=== PATIENT | female | born 1970 | race Caucasian/White ===

== ENCOUNTER 2020-07-12 17:02 | Observation (INO) | payer OTHER, SELFPAY ==
--- NOTE | ~2020-07-12 | CT_ITS ---
EXAMINATION: CT abdomen pelvis w con EXAM DATE: 07/12/2020 18:10 INDICATION: Lower abdominal pain . TECHNIQUE: Spiral CT of the abdomen and pelvis was performed following intravenous injection of 100 m L Omnipaque 350. Axial, coronal and sagittal images were reviewed. The dose-length product (DLP) fo r this examination was 1263.74 mGy-cm. The exposure was tailored according to patient size (auto mA exposure control), and iterative reconstruction (ASIR) was used as additional dose reduction techniqu e. There is no prior study for comparison. FINDINGS: The liver, spleen, adrenal glands and pancreas are unremarkable. There is large peripheral ly calcified gallstone within the gallbladder fundus. Portal and splenic veins are patent. Kidneys enhance symmetrically. There is no hydronephrosis. The uterus is not identified and has likely bee n surgically resected. The bladder is unremarkable. There is no retroperitoneal or pelvic lymphaden opathy. Small umbilical fat-containing hernia. The appendix is identified, appears fluid-filled and mildly dilated. There is extensive inflammation in the right lower quadrant, surrounding this appendix, also with edema of the cecal base. Most likel y acute appendicitis (best seen on coronal image 45). No abscess, free intraperitoneal gas or other evidence of perforation. There is some edema within several small bowel loops running adjacent to the appendix. Colonic fluid. The stomach and small bowel are unremarkable. The heart is normal in size. There are no pericardial or pleural effusions. The lung bases are unremarkable. There are no osteoblastic or osteolytic les ions identified. IMPRESSION: 1. Extensive right lower quadrant inflammation, most likely from acute appendicitis. 2. Cholelithiasis. Reviewed, dictated and finalized at location A. ATIONS PLANT ATTENDANT IMPRESSION: 1. Extensive right lower quadrant inflammation, most likely from acute appendic itis. 2. Cholelithiasis.
[2020-07-12 17:05] VITALS: BP 133/93; PULSE 100; RESP 15; TEMP 36.4; O2SAT 100
[2020-07-12 17:30] LABS: Basophils Absolute Auto 0.1 K/mm3 (0.0-0.1); Basophils Percent Auto 0.3 % (0.2-1.2); Eosinophils Absolute Auto 0.3 K/mm3 (0-0.3); Eosinophils Percent Auto 1.3 % (0-4.4); Hematocrit 41.3 % (37.0-47.0); Hemoglobin 14.4 g/dL (12.0-15.0); Immature Granulocyte Absolute 0.09 K/mm3 (0.00-0.031); Immature Granulocyte Percent A 0.5 % (0-0.5); Lymphocytes Absolute Auto 2.48 K/mm3 (0.9-3.2); Lymphocytes Percent Auto 12.8 % (18.3-44.2); Mean Corpuscular HGB Conc 34.9 g/dl (32-36); Mean Corpuscular Hemoglobin 30.1 pg (26-34); Mean Corpuscular Volume 86.4 fl (80-100); Mean Platelet Volume 9.6 fl (7.4-10.4); Monocytes Absolute Auto 1.1 K/mm3 (0.1-0.6); Monocytes Percent Auto 5.5 % (2.6-8.5); Neutrophils Absolute Auto 15.4 K/mm3 (1.3-6.7); Neutrophils Percent Auto 79.6 % (45.5-73.1); Platelet Count Result 358 k/mm3 (150-375); Red Blood Count 4.78 M/mm3 (4.2-5.4); Red Cell Distribution Width 13.3 % (11.5-14.5); White Blood Count 19.3 K/mm3 (4.5-10.0)
[2020-07-12 17:35] LABS: Add Urine Microscopic? YES; Appearance Urine Cloudy (Clear); Bacteria Urine Trace /hpf; Bilirubin Urine Negative (Negative); Color Urine Amber (Yellow); Glucose Urine UA Negative (Negative); Ketones Urine 2+ mg/dL (Negative); Leukocyte Esterase Ur Negative LEU/UL (Negative); Mucus Urine Few /lpf; Nitrate Urine Negative (Negative); Protein Urine 2+ mg/dL (Negative); Specific Grav Ur 1.017 (1.001-1.035); Squamous Epithelial Cell Urine Many /hpf (Few); Urobilinogen Urine Negative mg/dL (<2.0); WBC Urine 21-30 /hpf
--- NOTE | 2020-07-12 17:36 | ED.ABDPAIN ---
HPI - Abdominal Pain General Chief Complaint: Abdominal Pain Stated Complaint: ABD pain, since Sat at 1 am Time Seen by Provider: 07/12/20 17:14 Source: patient Mode of arrival: ambulatory Limitations: no limitations History of Present Illness HPI narrative: This patient is a 49 year old female who presents for evaluation of lower abdominal pain. She states she developed pain on Sunday. This pain is constant and it is located from her umbilicus down. She reports nausea but denies vomiting or diarrhea. She states this pain started after eating russian sunday night. She denies fever, chills or urinary complaints. Related Data Home Medications Medication Instructions Recorded Confirmed albuterol sulfate 90 mcg/actuation 2 puff INHALATION Q4H PRN g 06/30/20 07/12/20 aerosol inhaler phentermine 37.5 mg tablet 37.5 mg PO DAILY 06/30/20 07/12/20 topiramate 25 mg sprinkle capsule 25 mg PO HS 06/30/20 07/12/20 valacyclovir 1 gram tablet 2,000 mg PO Q12H PRN tablet 06/30/20 07/12/20 Allergies Allergy/AdvReac Type Severity Reaction Status Date / Time No Known Allergies Allergy Verified 07/12/20 17:06 Review of Systems Review of Systems: All systems reviewed & are unremarkable except as noted in HPI and below Constitutional: Constitutional: Denies chills and Denies fever(s) Gastrointestinal: Gastrointestinal: Reports abdominal pain, Reports constipation and Reports nausea PMFSH Past Medical History Medical History Environmental allergies Reactive airway disease Recurrent herpes labialis Surgical History Surgical History H/O: hysterectomy (~09/2017) Family History Family History (Updated 07/12/20 @ 20:33 by Bia Cohen RN) Father Cerebrovascular accident Prostate carcinoma Sibling History of blood clots Sibling Prostate carcinoma Other Diabetes mellitus Hypertension Social History Social History Smoking status: Never smoker Alcohol intake: never Substance use: never Substance use type: does not use Gender identity (if verbalized by the patient): Female Sexual Orientation (if Verbalized by the Patient): Straight or Heterosexual Spiritual care concerns: No Exam Const: General: no acute distress and alert Orientation/consciousness: patient oriented x3 Eyes: EOM: EOMs intact bilaterally Resp: Effort & Inspection: normal respiratory effort Auscultation: clear to auscultation bilaterally Cardio: Rate: regular rate Rhythm: regular rhythm Heart sounds: no murmurs GI: GI Palp: Yes Soft to palpation, Yes Tenderness to palpation present (GI) (RLQ), No Guarding due to palpation present (GI) and No Rigid due to palpation Auscultation: normal bowel sounds Skin: General skin exam: normal color Rashes: no rashes Neuro: General: patient oriented x3 and moves all extremities Course Consultations Consultation #1: I Discussed case with Dr. Obsorne. I Will given antibiotics, zosyn. He will call anesthesia to determine when she will go to surgery. Date: 07/12/20 Time: 18:46 Consultation #2: He accepts patient to his service. Patient will go to OR tomorrow morning. Date: 07/12/20 Time: 18:55 Vital Signs Vital signs: Vital Signs Temperature 97.5 F L 07/12/20 17:05 Pulse Rate 100 07/12/20 17:05 Respiratory Rate 15 07/12/20 17:05 Blood Pressure 133/93 H 07/12/20 17:05 Pulse Oximetry 100 07/12/20 17:05 Temperature 97.3 F L 07/12/20 20:36 Pulse Rate 69 07/12/20 20:36 Respiratory Rate 16 07/12/20 20:36 Blood Pressure 120/76 07/12/20 20:36 Pulse Oximetry 99 07/12/20 20:36 MDM - Abdominal Pain Lab Data Attestation: I reviewed the patient's lab results. Result diagrams: 07/12/20 17:21 07/12/20 17:21 Labs: Lab Results
[2020-07-12 17:38] LABS: Blood Urine Negative (Negative)
[2020-07-12 17:41] LABS: Alanine Aminotransferase 19 U/L (4-35); Albumin Level 4.3 g/dL (3.5-5.1); Alkaline Phosphatase 130 U/L (38-126); Anion Gap 10 mmol/L (8-16); Aspartate Amino Transferase 22 U/L (14-36); Bilirubin,Total 0.9 mg/dL (0.2-1.3); Blood Urea Nitrogen 6 mg/dL (7-17); Calcium 9.5 mg/dL (8.4-10.2); Carbon Dioxide 27 mmol/L (22-30); Chloride 98 mmol/L (98-107); Estimated CRCL calculation 98 ml/min; Estimated Glomerular Filt Rate > 60; Glucose 111 mg/dL (65-105); Lipase 31 U/L (23-300); Potassium 3.1 mmol/L (3.4-5.0); Sodium 135 mmol/L (137-145)
[2020-07-12] MEDS: LACTATED RINGERS 1,000 ML 999 ML IV CONT (18:21)
[2020-07-12] MEDS: ONDANSETRON INJ 4 MG/2 ML VIAL IV PUSH ×2 (18:21→21:31)
[2020-07-12 18:55] VITALS: BP 146/78; PULSE 88; RESP 16; O2SAT 98
--- NOTE | 2020-07-12 20:30 | ADMGEN ---
This patient, Heidi Newberry, was admitted to 2 Medical Room 240-01. Patient/family oriented to hospital policies and general routines including ID bracelet, bed and alarms, visiting hours, pain management, procedures, bathroom and other care routines, personal items, smoking policy, room service/diet, and visiting hours. Information on how to activate the Rapid Response Team has been discussed. Patient/Family are encouraged to report perceived risks to care and to ask questions if they do not understand what they are told or what they should do.
[2020-07-12 20:36] VITALS: BP 120/76; PULSE 69; RESP 16; TEMP 36.3; O2SAT 99; BMI 36.8
[2020-07-12] MEDS: ZOLPIDEM TARTRATE (*CRX) 5 MG TABLET PO (21:21)
[2020-07-12] MEDS: LACTATED RINGERS 1,000 ML 125 ML IV CONT (21:21)
[2020-07-12] MEDS: MORPHINE SULFATE (*CRX) 4 MG/ML INJ IV PUSH (21:29)
[2020-07-13] VITALS (17 sets, daily range): BP systolic 99–123; BP diastolic 50–87; PULSE 64–107; RESP 14–20; TEMP 36.2–37; O2SAT 90–100
[2020-07-13] MEDS: LACTATED RINGERS 1,000 ML 125 ML IV CONT (05:00)
[2020-07-13] MEDS: ONDANSETRON INJ 4 MG/2 ML VIAL IV PUSH (05:03)
[2020-07-13] MEDS: MORPHINE SULFATE (*CRX) 4 MG/ML INJ IV PUSH (05:03)
--- NOTE | 2020-07-13 05:09 | WPDANESEPP ---
Anes - Eval Pre Procedure Procedure: Lap appy Date/Time: 07/13/20 05:09 Surgeon: Dylon Preop Diagnosis: Acute appendicitis Pre Op Diagnosis: acute appendicitis Patient Data Age: 49 Gender: F Height: 5 ft 5 in Weight: 100.6 kg Last Vital Signs Temp 97.3 F L 07/12/20 20:36 Pulse 69 07/12/20 20:36 Resp 16 07/12/20 20:36 BP 120/76 07/12/20 20:36 Pulse Ox 99 07/12/20 20:36 Allergies Allergy/AdvReac Type Severity Reaction Status Date / Time No Known Allergies Allergy Verified 07/12/20 17:06 Home Medications Medication Instructions Recorded Confirmed Type albuterol sulfate 90 mcg/actuation 2 puff INHALATION Q4H PRN g 06/30/20 07/12/20 History aerosol inhaler phentermine 37.5 mg tablet 37.5 mg PO DAILY 06/30/20 07/12/20 History topiramate 25 mg sprinkle capsule 25 mg PO HS 06/30/20 07/12/20 History valacyclovir 1 gram tablet 2,000 mg PO Q12H PRN tablet 06/30/20 07/12/20 History Laboratory Tests 07/12/20 07/12/20 07/12/20 17:21 17:21 17:21 WBC 19.3 K/mm3 H K/mm3 (4.5-10.0) RBC 4.78 M/mm3 M/mm3 (4.2-5.4) Hgb 14.4 g/dL g/dL (12.0-15.0) Hct 41.3 % % (37.0-47.0) MCV 86.4 fl fl (80-100) MCH 30.1 pg pg (26-34) MCHC 34.9 g/dl g/dl (32-36) RDW 13.3 % % (11.5-14.5) Plt Count 358 k/mm3 k/mm3 (150-375) MPV 9.6 fl fl (7.4-10.4) Immature Gran % (Auto) 0.5 % % (0-0.5) Neut % (Auto) 79.6 % H % (45.5-73.1) Lymph % (Auto) 12.8 % L % (18.3-44.2) Riley % (Auto) 5.5 % % (2.6-8.5) Eos % (Auto) 1.3 % % (0-4.4) Baso % (Auto) 0.3 % % (0.2-1.2) Lymph # (Auto) 2.48 K/mm3 K/mm3 (0.9-3.2) Riley # (Auto) 1.1 K/mm3 H K/mm3 (0.1-0.6) Eos # (Auto) 0.3 K/mm3 K/mm3 (0-0.3) Baso # (Auto) 0.1 K/mm3 K/mm3 (0.0-0.1) Abs Immat Gran (auto) 0.09 K/mm3 H K/mm3 (0.00-0.031) Absolute Neuts (auto) 15.4 K/mm3 H K/mm3 (1.3-6.7) Absolute Nucleated RBC 0.0 K/mm3 K/mm3 (0.0-0.012) Nucleated RBC % 0.0 % % (0.0-0.2) Sodium 135 mmol/L L mmol/L (137-145) Potassium 3.1 mmol/L L mmol/L (3.4-5.0) Chloride 98 mmol/L mmol/L (98-107) Carbon Dioxide 27 mmol/L mmol/L (22-30) Anion Gap 10 mmol/L mmol/L (8-16) BUN 6 mg/dL L mg/dL (7-17) Creatinine 0.70 mg/dL mg/dL (0.7-1.0) Estim Creat Clear Calc 98 ml/min ml/min Estimated GFR > 60 (59 - ) Glucose 111 mg/dL H mg/dL (65-105) Calcium 9.5 mg/dL mg/dL (8.4-10.2) Total Bilirubin 0.9 mg/dL mg/dL (0.2-1.3) AST 22 U/L U/L (14-36) ALT 19 U/L U/L (4-35) Alkaline Phosphatase 130 U/L H U/L (38-126) Total Protein 8.0 g/dL g/dL (6.3-8.2) Albumin 4.3 g/dL g/dL (3.5-5.1) Lipase 31 U/L U/L (23-300) Urine Color Mayela (Yellow) Urine Appearance Cloudy H (Clear) Urine pH 6.0 (5.0-9.0) Ur Specific [place] 1.017 (1.001-1.035) Urine Protein 2+ mg/dL H mg/dL (Negative) Urine Glucose (UA) Negative mg/dL mg/dL (Negative) Urine Ketones 2+ mg/dL H mg/dL (Negative) Ur Blood (Man) Negative (Negative) Urine Nitrate Negative (Negative) Urine Bilirubin Negative (Negative) Urine Urobilinogen Negative mg/dL mg/dL (<2.0) Leukocyte Esterase Rfl Negative [place]/UL [place]/UL (Negative) Urine RBC 3-5 /hpf H /hpf (0-2) Urine WBC 21-30 /hpf H /hpf Ur Squamous Epith Cells Many /hpf H /hpf (Few) Urine Bacteria Trace /hpf /hpf Hyaline Casts 1-2 /lpf /lpf (None) Urine Mucus Few /lpf H /lpf Patient hx anesthesia problems: none Family hx anesth
--- NOTE | 2020-07-13 06:28 | PC.NURSE ---
0625 patient to OR per stretcher.
--- NOTE | 2020-07-13 06:35 | WPDANESEPPF ---
Anes - Initial Pre Proc Eval Procedure: Operation Date: 07/13/20 07:00 Proposed Procedures p Laparoscopic Appendectomy - Alli Osborne DO Date/Time: 07/13/20 06:35 Surgeon: Alli Osborne DO Pre Op Diagnosis: acute appendicitis Patient Data Age: 49 Gender: F Height: 1.65 m Weight: 100.6 kg Last Vital Signs Temp 36.3 C L 07/13/20 06:03 Pulse 76 07/13/20 06:03 Resp 16 07/13/20 06:03 BP 113/67 07/13/20 06:03 Pulse Ox 97 07/13/20 06:03 Allergies Allergy/AdvReac Type Severity Reaction Status Date / Time No Known Allergies Allergy Verified 07/12/20 17:06 Home Medications Medication Instructions Recorded Confirmed Type albuterol sulfate 90 mcg/actuation 2 puff INHALATION Q4H PRN g 06/30/20 07/12/20 History aerosol inhaler phentermine 37.5 mg tablet 37.5 mg PO DAILY 06/30/20 07/12/20 History topiramate 25 mg sprinkle capsule 25 mg PO HS 06/30/20 07/12/20 History valacyclovir 1 gram tablet 2,000 mg PO Q12H PRN tablet 06/30/20 07/12/20 History Laboratory Tests 07/12/20 07/12/20 07/12/20 17:21 17:21 17:21 WBC 19.3 K/mm3 H K/mm3 (4.5-10.0) RBC 4.78 M/mm3 M/mm3 (4.2-5.4) Hgb 14.4 g/dL g/dL (12.0-15.0) Hct 41.3 % % (37.0-47.0) MCV 86.4 fl fl (80-100) MCH 30.1 pg pg (26-34) MCHC 34.9 g/dl g/dl (32-36) RDW 13.3 % % (11.5-14.5) Plt Count 358 k/mm3 k/mm3 (150-375) MPV 9.6 fl fl (7.4-10.4) Immature Gran % (Auto) 0.5 % % (0-0.5) Neut % (Auto) 79.6 % H % (45.5-73.1) Lymph % (Auto) 12.8 % L % (18.3-44.2) Arthur % (Auto) 5.5 % % (2.6-8.5) Eos % (Auto) 1.3 % % (0-4.4) Baso % (Auto) 0.3 % % (0.2-1.2) Lymph # (Auto) 2.48 K/mm3 K/mm3 (0.9-3.2) Arthur # (Auto) 1.1 K/mm3 H K/mm3 (0.1-0.6) Eos # (Auto) 0.3 K/mm3 K/mm3 (0-0.3) Baso # (Auto) 0.1 K/mm3 K/mm3 (0.0-0.1) Abs Immat Gran (auto) 0.09 K/mm3 H K/mm3 (0.00-0.031) Absolute Neuts (auto) 15.4 K/mm3 H K/mm3 (1.3-6.7) Absolute Nucleated RBC 0.0 K/mm3 K/mm3 (0.0-0.012) Nucleated RBC % 0.0 % % (0.0-0.2) Sodium 135 mmol/L L mmol/L (137-145) Potassium 3.1 mmol/L L mmol/L (3.4-5.0) Chloride 98 mmol/L mmol/L (98-107) Carbon Dioxide 27 mmol/L mmol/L (22-30) Anion Gap 10 mmol/L mmol/L (8-16) BUN 6 mg/dL L mg/dL (7-17) Creatinine 0.70 mg/dL mg/dL (0.7-1.0) Estim Creat Clear Calc 98 ml/min ml/min Estimated GFR > 60 (59 - ) Glucose 111 mg/dL H mg/dL (65-105) Calcium 9.5 mg/dL mg/dL (8.4-10.2) Total Bilirubin 0.9 mg/dL mg/dL (0.2-1.3) AST 22 U/L U/L (14-36) ALT 19 U/L U/L (4-35) Alkaline Phosphatase 130 U/L H U/L (38-126) Total Protein 8.0 g/dL g/dL (6.3-8.2) Albumin 4.3 g/dL g/dL (3.5-5.1) Lipase 31 U/L U/L (23-300) Urine Color Mayela (Yellow) Urine Appearance Cloudy H (Clear) Urine pH 6.0 (5.0-9.0) Ur Specific [place] 1.017 (1.001-1.035) Urine Protein 2+ mg/dL H mg/dL (Negative) Urine Glucose (UA) Negative mg/dL mg/dL (Negative) Urine Ketones 2+ mg/dL H mg/dL (Negative) Ur Blood (Man) Negative (Negative) Urine Nitrate Negative (Negative) Urine Bilirubin Negative (Negative) Urine Urobilinogen Negative mg/dL mg/dL (<2.0) Leukocyte Esterase Rfl Negative [place]/UL [place]/UL (Negative) Urine RBC 3-5 /hpf H /hpf (0-2) Urine WBC 21-30 /hpf H /hpf Ur Squamous Epith Cells Many /hpf H /hpf (Few) Urine Bacteria Trace /hpf /hpf Hyaline Casts 1-2 /lpf /lpf (None) Urine Mucus
[2020-07-13] MEDS: LACTATED RINGERS 1,000 ML 30 ML IV CONT ×2 (06:53→08:36)
[2020-07-13] MEDS: FAMOTIDINE 20 MG/2 ML VIAL IV PUSH (06:54)
[2020-07-13] MEDS: SCOPOLAMINE 1.5 MG PATCH TRANSDERM (06:55)
[2020-07-13] MEDS: fentaNYL CITRATE INJ (*CRX) 100 MCG/2 ML VIAL 25 MCG IV PUSH ×5 (07:00→09:04)
--- NOTE | 2020-07-13 07:13 | PM.IMHP ---
H&P: HPI History of Present Illness Date/Time: 07/13/20 07:13 Chief Complaint: Right lower quadrant pain Narrative: Heidi Newberry is a 49 year old female who presents with right lower quadrant abdominal pain for the past 3 days. She states that she woke up with pain around 1:00 a.m. 3 days ago and pain was severe that day. Pain was a little bit better 2 days ago, but then persisted yesterday and therefore she presented to the emergency department. She has never had pain like this in the past. She has had some nausea and some feelings of near-syncope. She denies any fevers or chills. She denies any change in bowel habits. She has been taking phentermine to help with weight loss and initially thought maybe some of the GI issues were related to this, but then her symptoms persisted and she thought it was likely something else. She denies any hematochezia. Review of Systems Review of Systems: All systems reviewed & are unremarkable except as noted in HPI and below PMFSH Past Medical History Medical History (Updated 07/13/20 @ 07:17 by Alli Osborne DO) Acute appendicitis Asthma Environmental allergies Obesity Reactive airway disease Recurrent herpes labialis Surgical History Surgical History (Updated 07/13/20 @ 07:15 by Alli Osborne DO) H/O: hysterectomy (~09/2017) History of Family History Family History Father Cerebrovascular accident Prostate carcinoma Sibling History of blood clots Sibling Prostate carcinoma Other Diabetes mellitus Hypertension Social History Social History Smoking status: Never smoker Alcohol intake: never Substance use: never Substance use type: does not use Gender identity (if verbalized by the patient): Female Sexual Orientation (if Verbalized by the Patient): Straight or Heterosexual Spiritual care concerns: No Meds Home Medications and Allergies Home Medications Medication Instructions Recorded Confirmed Type albuterol sulfate 90 mcg/actuation 2 puff INHALATION Q4H PRN g 06/30/20 07/12/20 History aerosol inhaler phentermine 37.5 mg tablet 37.5 mg PO DAILY 06/30/20 07/12/20 History topiramate 25 mg sprinkle capsule 25 mg PO HS 06/30/20 07/12/20 History valacyclovir 1 gram tablet 2,000 mg PO Q12H PRN tablet 06/30/20 07/12/20 History Allergies Allergy/AdvReac Type Severity Reaction Status Date / Time No Known Allergies Allergy Verified 07/12/20 17:06 Vital Signs Vital Signs - 24 hr 07/12/20 17:05 07/12/20 18:55 07/12/20 20:36 Temperature 36.4 C L 36.3 C L Pulse Rate 100 88 69 Respiratory Rate 15 16 16 Blood Pressure 133/93 H 146/78 H 120/76 Pulse Oximetry 100 98 99 07/13/20 06:03 07/13/20 06:38 Temperature 36.3 C L 36.4 C L Pulse Rate 76 80 Respiratory Rate 16 18 Blood Pressure 113/67 107/57 L Pulse Oximetry 97 99 Exam Const: General: alert; No acute distress Orientation/consciousness: patient oriented x3 Limitations: no limitations HENMT: Head: normocephalic and atraumatic Ears: hearing grossly normal bilaterally General nose exam: Normal external nose present and Normal nares present Mouth: Yes Normal oral and palatal mucosa present and Yes moist mucous membranes Eyes: General: appearance normal, both eyes and all related structures Conjunctivae: conjunctivae normal Sclera: sclerae normal Pupils: Equal, round and reactive pupils present EOM: EOMs intact bilaterally Neck: Neck: normal visual inspection, full ROM, no lymphadenopathy, supple and no JVD Lymphatic: no lymphadenopathy noted Chest: Chest palpation & inspection: normal inspection of the chest Resp: Effort & Inspection: normal respiratory effort and able to speak in complete sentences Auscultation: clear to auscultation bilaterally Percussion: percussion normal Cardio: Jugular venous distension: no JVD Rate:
--- NOTE | 2020-07-13 07:18 | WPDHPUPDATE1 ---
History and Physical Update Update Date/Time: 07/13/20 07:18 History and Physical has been reviewed, including an updated exam of the patient. There are NO changes in the patient's condition. Risks, benefits, and alternatives have been discussed and questions answered. Patient agrees to proceed with procedure.
[2020-07-13] MEDS: BUPIVACAINE HCL 0.5% PF 30 ML VIAL INFILTRATE (07:46)
--- NOTE | 2020-07-13 08:27 | PM.PROC ---
Procedure Note - Detailed Date of procedure: 07/13/20 Pre-op diagnosis: acute appendicitis Post-op diagnosis: same Procedure performed: Laparoscopic Appendectomy Description of procedure: Procedure as well as risks, benefits, and alternatives were explained to the patient. The patient agreed to proceed. Written consent was obtained and placed in chart prior to procedure. The patient was brought back to surgical suite. She was placed supine on operating table. Time-out was done to confirm the patient and procedure. The patient was then intubated by the Anesthesia Department. Her abdomen was prepped and draped in sterile fashion using chlorhexidine prep. A 5 mm incision was made just to the left of the patient's umbilicus and a 5 mm Optiview trocar was advanced through the abdominal layers under direct visualization. Once inside the peritoneal cavity, carbon dioxide insufflation was used to create a pneumoperitoneum. The camera was inserted and the abdomen was inspected. No immediate abnormalities were identified. The patient was then placed in slight Trendelenburg position and rotated to the left. A 5 mm incision was made in the suprapubic region in midline and a 5 mm trocar was inserted under direct visualization. A 12 mm incision was made in the left lower quadrant and a 12 mm trocar was inserted under direct visualization. The right lower quadrant was carefully inspected. The cecum was identified and then this was traced back to the appendix. The appendix was identified and grasped at the mesoappendix and lifted anteriorly. Careful blunt dissection was carried out at the base of the appendix through the mesoappendix using a [place] grasper. An Endo-NINOSKA 45 mm blue load stapler was then advanced across the base of the appendix and clamped and fired. A white reload was then clamped across the mesoappendix and fired. This freed up our appendix completely. It was then placed in an EndoCatch bag and removed through the left lower quadrant port. The staple lines were then inspected. Hemostasis appeared adequate and the staple lines appeared secure. The area was then irrigated with sterile saline. The pelvis was then carefully inspected and irrigated with sterile saline as well and the remainder of the abdomen was carefully inspected. The patient was then flattened out in bed. One final inspection was made around the abdominal cavity and no other abnormalities were seen. The left lower quadrant port was removed and a Kishan-Cirilo cone was used to approximate the fascia with a 0 Vicryl simple interrupted suture. The remaining ports were then removed under direct visualization. The camera was removed and the pneumoperitoneum was released. 0.5% bupivacaine with epinephrine was infiltrated locally around each of the incisions. The skin of the incisions was then approximated using 4-0 Monocryl subcuticular suture and Exofin glue was applied on top. The patient was then awakened from anesthesia, extubated, and transferred to Recovery. Anesthesia: GETA and local (0.5% bupivicaine with epi) Surgeon: Alli Osborne DO Estimated blood loss (mL): 20 Pathology: yes (Appendix) Complications: No immediate complications Condition: stable Disposition: floor Findings: This is a 49-year-old woman who presented to the emergency department last night with right lower quadrant pain for past 2 days. She had had progressively worsening pain and nausea. She denied any fevers or chills. CT in the emergency department showed significant right lower quadrant inflammatory changes suggestive of appendicitis. She was admitted and started on broad-spectrum IV antibiotics. Decision was made to proceed with laparoscopic appendectomy, possible open. Laparoscopic appendectomy was performed. There was an inflammatory phlegmonous mass in the right lower quadrant with sigmoid adhesions as well as small bowel adhesions and omental adhesions. Once many of these adhesions wer
--- NOTE | 2020-07-13 10:00 | PC.NURSE ---
Returned from OR per stretcher. Report received from DANNY Madison.
[2020-07-13] MEDS: LACTATED RINGERS 1,000 ML 100 ML IV CONT (10:03)
[2020-07-13] MEDS: ENOXAPARIN 30 MG/0.3 ML SYRINGE SUB-Q ×2 (10:55→20:02)
[2020-07-13] MEDS: HYDROcodone/acetaminophen (*CRX) 7.5-325 MG TABLET 1 TAB PO ×2 (12:59→19:57)
[2020-07-13] MEDS: ZOLPIDEM TARTRATE (*CRX) 5 MG TABLET PO (22:27)
[2020-07-14] MEDS: HYDROcodone/acetaminophen (*CRX) 5-325 MG TABLET 1 TAB PO (01:12)
[2020-07-14 04:00] VITALS: BP 100/64; PULSE 74; RESP 20; TEMP 36.6; O2SAT 98
[2020-07-14] MEDS: HYDROcodone/acetaminophen (*CRX) 7.5-325 MG TABLET 1 TAB PO ×3 (05:49→20:10)
[2020-07-14 06:17] LABS: Hematocrit 30.6 % (37.0-47.0); Hemoglobin 10.7 g/dL (12.0-15.0); Mean Corpuscular Hemoglobin 29.9 pg (26-34); Mean Corpuscular Volume 85.5 fl (80-100); Mean Platelet Volume 10.1 fl (7.4-10.4); Platelet Count Result 340 k/mm3 (150-375); Red Blood Count 3.58 M/mm3 (4.2-5.4); Red Cell Distribution Width 13.2 % (11.5-14.5); White Blood Count 13.9 K/mm3 (4.5-10.0)
[2020-07-14 06:43] LABS: Anion Gap 5 mmol/L (8-16); Blood Urea Nitrogen 8 mg/dL (7-17); Calcium 8.8 mg/dL (8.4-10.2); Carbon Dioxide 31 mmol/L (22-30); Chloride 101 mmol/L (98-107); Estimated CRCL calculation 98 ml/min; Estimated Glomerular Filt Rate > 60; Glucose 111 mg/dL (65-105); Potassium 3.2 mmol/L (3.4-5.0); Sodium 137 mmol/L (137-145)
[2020-07-14 08:00] VITALS: BP 114/77; PULSE 80; RESP 16; TEMP 36.2; O2SAT 99
[2020-07-14] MEDS: ENOXAPARIN 30 MG/0.3 ML SYRINGE SUB-Q ×2 (08:08→20:13)
--- NOTE | 2020-07-14 08:57 | WPDANESPN ---
Anes - Prog Note Post-Op Date/Time: 07/14/20 08:57 Cardiovascular status: normal Respiratory status: normal Airway patency: baseline Mental status: baseline Post-Op hydration status: normal Vital Signs: Last Vital Signs Temp 36.6 C 07/14/20 04:00 Pulse 74 07/14/20 04:00 Resp 20 07/14/20 04:00 BP 100/64 07/14/20 04:00 Pulse Ox 98 07/14/20 04:00 Pain Score (VAS): 07/18 I/O: Intake & Output 07/13/20 07/14/20 07/14/20 23:59 07:59 15:59 Intake Total 1680 490 Output Total 995 1850 Balance 685 -1360 Laboratory Tests 07/14/20 05:15 07/14/20 05:15 07/14/20 07/14/20 05:15 05:15 WBC 13.9 H RBC 3.58 L Hgb 10.7 L D Hct 30.6 L MCV 85.5 MCH 29.9 MCHC 35.0 RDW 13.2 Plt Count 340 MPV 10.1 Sodium 137 Potassium 3.2 L Chloride 101 Carbon Dioxide 31 H Anion Gap 5 L BUN 8 Creatinine 0.70 Estim Creat Clear Calc 98 Estimated GFR > 60 Glucose 111 H Calcium 8.8 Microbiology 07/12/20 17:21 Urine Clean Catch Urine Culture - Final Patient Feedback: Patient satisfied with anesthetic care.
[2020-07-14] MEDS: ONDANSETRON INJ 4 MG/2 ML VIAL IV PUSH ×2 (11:19→20:11)
--- NOTE | 2020-07-14 12:33 | PM.PNGS ---
Progress Note: A&P Assessment and Plan (1) Acute appendicitis: Qualifiers: Acute appendicitis type: with localized peritonitis Appendicitis abscess presence: unspecified whether abscess present Appendicitis gangrene presence: unspecified whether gangrene present Appendicitis perforation presence: unspecified whether perforation present Qualified Code(s): K35.30 - Acute appendicitis with localized peritonitis, without perforation or gangrene Code(s): K35.80 - Unspecified acute appendicitis Status: Acute Assessment and Plan: POD1 and doing well. Pain is well-controlled and she is tolerating activity. WBC trending down, afebrile. She is complaining of bloating and some nausea today. We will plan to keep her overnight and potentially discharge tomorrow if she continues to improve. Continue to monitor EMMANUEL drain output. Continue IV antibiotics. Encouraged increased activity/OOB and IS use. Pathology pending. (2) BMI 36.0-36.9,adult: Code(s): Z68.36 - Body mass index [BMI] 36.0-36.9, adult Status: Acute Additional Plan Discussed the patient's case with Dr. Osborne. Subjective Subjective Date/Time Seen: 07/14/20 12:33 Post Op day: 1 (Lap appy) Patient reports: voiding w/o difficulty, flatus, no bowel movement and nausea Interval history: Patient feeling well today. Reports some soreness and abdominal pain primarily only when getting up and moving around/walking. She reports some nausea this morning and is still feeling bloated. Reports flatus. Denies any vomiting. No other complaints at this time. Review of Systems Review of Systems: All systems reviewed & are unremarkable except as noted in HPI and below Constitutional: Constitutional: Reports as per HPI, Reports no additional constitutional complaints, Denies chills and Denies fever(s) Cardiovascular: Cardiovascular: Reports no additional cardiovascular complaints, Denies chest pain, Denies leg edema and Denies dyspnea Respiratory: Respiratory: Reports no additional respiratory complaints, Denies cough and Denies dyspnea Gastrointestinal: Gastrointestinal: Reports as per HPI and Reports no additional gastrointestinal complaints Neurologic: Reports system reviewed and no additional complaints, except as documented, Denies Abnormal speech present, Denies confusion and Denies focal weakness Psychiatric: Psychiatric: Denies confusion Exam Const: General: comfortable, no acute distress, alert and awake Orientation/consciousness: patient oriented x3 Resp: Effort & Inspection: normal respiratory effort Auscultation: clear to auscultation bilaterally Cardio: Rate: regular rate Rhythm: regular rhythm GI: Inspection: non-distended, incision (Abdominal incisions clean and dry, glue intact. ) and obesity GI Palp: Yes Soft to palpation, Yes Tenderness to palpation present (GI) (incisional and RLQ), No Guarding due to palpation present (GI), No Rebound tenderness present and Yes Other GI palpation findings present (EMMANUEL with cloudy serosanguines drainage) Auscultation: Hypoactive bowel sounds present Skin: General skin exam: normal color Rashes: no rashes Neuro: General: patient oriented x3, moves all extremities and no focal motor deficits Cranial nerves: Yes CN's II-XII intact bilaterally Speech: normal speech and No Abnormal speech present Extrem: General: normal to inspection, no clubbing, cyanosis or edema and no calf tenderness Psych: Mental Status: mental status grossly normal Attitude: cooperative Thought process: Normal thought process present Thought content: Yes Normal thought content present Insight: Good insight present (Psych) Judgement: Good judgement present (Psych) Objective Data Vital Signs Vital Signs: Vital Signs - 24 hr 07/13/20 14:04 07/13/20 15:15 07/13/20 20:00 Temperature 98.4 F 98.1 F Pulse Rate 74 64 Respiratory Rate 18 20 Blood Pressure 111/59 L 99/68 L Pulse Oximetry 92 95 97 07/13/20 22:19
[2020-07-14 14:00] VITALS: BP 125/79; PULSE 68; RESP 14; TEMP 36.5; O2SAT 99
[2020-07-14 18:00] VITALS: BP 129/84; PULSE 70; RESP 16; TEMP 36.1; O2SAT 99
[2020-07-14 20:27] VITALS: BP 121/63; PULSE 68; RESP 20; TEMP 36.1; O2SAT 99
[2020-07-15] MEDS: ZOLPIDEM TARTRATE (*CRX) 5 MG TABLET PO (01:32)
[2020-07-15 04:37] VITALS: BP 109/65; PULSE 69; RESP 20; TEMP 36.3; O2SAT 99
[2020-07-15] MEDS: HYDROcodone/acetaminophen (*CRX) 5-325 MG TABLET 1 TAB PO (06:17)
[2020-07-15] MEDS: ENOXAPARIN 30 MG/0.3 ML SYRINGE SUB-Q (08:07)
[2020-07-15] MEDS: ONDANSETRON INJ 4 MG/2 ML VIAL IV PUSH (08:10)
[2020-07-15 09:59] LABS: Hematocrit 37.1 % (37.0-47.0); Hemoglobin 12.7 g/dL (12.0-15.0); Mean Corpuscular HGB Conc 34.2 g/dl (32-36); Mean Corpuscular Hemoglobin 29.7 pg (26-34); Mean Corpuscular Volume 86.7 fl (80-100); Mean Platelet Volume 9.4 fl (7.4-10.4); Platelet Count Result 356 k/mm3 (150-375); Red Blood Count 4.28 M/mm3 (4.2-5.4); Red Cell Distribution Width 13.2 % (11.5-14.5); White Blood Count 10.1 K/mm3 (4.5-10.0)
[2020-07-15] MEDS: polyethylene glycoL 3350 17 GM POWD.PACK PO (10:00)
[2020-07-15] MEDS: PANTOPRAZOLE 40 MG TABLET PO (10:00)
[2020-07-15 10:08] LABS: Anion Gap 5 mmol/L (8-16); Blood Urea Nitrogen 5 mg/dL (7-17); Calcium 8.5 mg/dL (8.4-10.2); Carbon Dioxide 33 mmol/L (22-30); Chloride 98 mmol/L (98-107); Estimated CRCL calculation 98 ml/min; Estimated Glomerular Filt Rate > 60; Glucose 105 mg/dL (65-105); Potassium 3.6 mmol/L (3.4-5.0); Sodium 136 mmol/L (137-145)
[2020-07-15 14:00] VITALS: BP 116/77; PULSE 68; RESP 18; TEMP 36; O2SAT 96
--- NOTE | 2020-07-15 14:47 | PM.DS ---
DS: Admitting Diagnosis Admitting Diagnosis Admitting Diagnosis: Acute appendicitis Obesity BMI 36 DS: Discharge Diagnosis Discharge Diagnosis (1) Acute appendicitis: Qualifiers: Acute appendicitis type: with localized peritonitis Appendicitis abscess presence: unspecified whether abscess present Appendicitis gangrene presence: unspecified whether gangrene present Appendicitis perforation presence: unspecified whether perforation present Qualified Code(s): K35.30 - Acute appendicitis with localized peritonitis, without perforation or gangrene Code(s): K35.80 - Unspecified acute appendicitis Status: Acute Assessment and Plan: 07/13/[address] Osborne Pathology back today showing ACUTE APPENDICITIS WITH PERFORATION AND ACUTE SEROSITIS, FIBROUS OBLITERATION OF LUMEN OF DISTAL TIP. (2) BMI 36.0-36.9,adult: Code(s): Z68.36 - Body mass index [BMI] 36.0-36.9, adult Status: Acute DS: Summary Hospital Course Reason for hospitalization: Heidi Newberry is a 49 year old female who presented to the ER with right lower quadrant abdominal pain for 3 days. ED workup revealed leukocytosis with CT scan that showed extensive right lower quadrant inflammation, likely from acute appendicitis. She was then admitted to the hospital in this setting and evaluated by Dr. Osborne for surgical evaluation. Hospital Course: The patient was started on empiric broad-spectrum IV antibiotics on admission and decision was made to take her urgently for an appendectomy. She underwent laparoscopic appendectomy by Dr. Osborne on 07/13/19. Intraoperative findings included an inflammatory phlegmonous mass in the right lower quadrant with sigmoid adhesions as well as small bowel adhesions and omental adhesions. There was significant phlegmonous changes around the appendix, but no definitive abscess. There was strong suspicion of perforation, therefore a EMMANUEL drain was placed in surgery and she was continued on IV antibiotics and kept overnight. POD#1 the patient was feeling nauseated and bloated, and her EMMANUEL drain had some cloudy serosanguineous drainage. Therefore, she remained on IV antibiotics and kept another day. Labs were monitored and her WBC continued to trend towards normal and is now 10,100 today. She was advanced to a regular diet. She did have nausea and one episode of vomiting yesterday afternoon that was treated with antiemetics. Today, her nausea has improved and she was able to tolerate primarily clear liquids during breakfast and lunch. She denies any nausea or bloating at this time and reports lots of flatus. No BM yet and was given one dose of Miralax this morning. EMMANUEL drainage is a clear serous drainage today. She has been afebrile since surgery and hemodynamically stable. Pain is well-controlled. She is voiding without difficulty. If the patient is able to tolerate a regular diet this afternoon, then she will be discharged home. If not, we will keep her another night. Discharge instructions were discussed in detail with the patient and answered all questions. Given the concern of perforation, which has now been confirmed on pathology, we will send her home on a course of oral antibiotics. We will have the nurse remove the EMMANUEL drain prior to discharge as well. Status at Discharge Functional status at discharge: independent ambulation Overall status at discharge: patient is progressing back to baseline Time Spent with Patient Time attestation: Total time spent providing and/or coordinating discharge services: Time spent: Greater than 30 minutes DS: Data Data Completed and Pending Completed studies during hospitalization: Pending at discharge 07/13/20 07:43 Surgical [PTH] Routine Labs on day of discharge: Labs from last 24 hours 07/15/20 07/15/20 09:23 09:23 WBC 10.1 H RBC 4.28 Hgb 12.7 Hct 37.1 MCV 86.7 MCH 29.7 MCHC 34.2 RDW 13.2 Plt Count 356 MPV 9.4 Sodium 136 L P
== END 2020-07-15 18:00 | disposition home or self-care (01) ==
LOC: ANHED 19:01 → ANH2MED 20:04
PROVIDERS: Emergency Medicine; Nurse Practitioner Family; Admitting Provider Surgery; Emergency Provider General Practice; PCP Family Medicine; Visit Provider Surgery
PROC: 0DTJ4ZZ Resection of Appendix, Percutaneous Endoscopic Approach (ICD-10-PCS; CPT 44970; principal; 2020-07-13 07:00)
DX: K35.32 Acute appendicitis with perforation, localized peritonitis, and gangrene, without abscess (principal); R10.9 Unspecified abdominal pain; R11.0 Nausea; J45.909 Unspecified asthma, uncomplicated; K80.20 Calculus of gallbladder without cholecystitis without obstruction; E66.9 Obesity, unspecified; B00.1 Herpesviral vesicular dermatitis; Z68.36 Body mass index [BMI] 36.0-36.9, adult; Z79.899 Other long term (current) drug therapy; Z23 Encounter for immunization
CPT/HCPCS: 44970; 36415; 74177; 80048; 80053; 81001; 83690; 85025; 85027; 87086; 88304; 90471; 90653; 96361; 96365; 96367; 96374; 96375; 99285; A9270; G0008; G0378; J0131; J0330; J1100; J1650; J2250; J2270; J2405; J2543; J2704; J2710; J3010; J7030; J7120; Q9967

== ENCOUNTER 2022-04-12 01:21 | Day surgery (SDC) | payer OTHER, SELFPAY ==
[2022-03-24 13:11] VITALS: BMI 35.6
[2022-04-12 07:53] VITALS: BMI 36.4
[2022-04-12] MEDS: LACTATED RINGERS 1,000 ML 150 ML IV CONT (08:03)
--- NOTE | 2022-04-12 08:30 | P.PNAN_ITS ---
Anes - Initial Pre Proc Eval Procedure: Operation Date: 04/12/22 09:00 Proposed Procedures p Screening Colonoscopy - Nelson Betancourt MD Date/Time: 04/12/22 08:30 Surgeon: Nelson Betancourt MD Pre Op Diagnosis: neoplasm screening Patient Data Age: 51 Gender: F Height: 1.68 m Weight: 102.5 kg Allergies Allergy/AdvReac Type Severity Reaction Status Date / Time No Known Allergies Allergy Verified 03/24/22 13:10 Home Medications Medication Instructions Recorded Confirmed Type albuterol sulfate 90 mcg/actuation 2 puff inhalation Q4H PRN 06/30/20 03/24/22 History aerosol inhaler Shortness Of Breath Or Wheezing valacyclovir 1 gram tablet 2,000 mg PO Q12H PRN cold sores 09/08/20 03/24/22 Rx #30 tabs [id number]-[id number]-[id number] 3.5 1 drp EACH EYE Q4H #5 mL 09/14/21 03/24/22 Rx mg/mL-10,000 unit/mL-0.1% eye drops Patient hx anesthesia problems: none Family hx anesthesia problems: none Results Review: All pre-operative results and documents have been reviewed as part of the pre- operative evaluation. [facility] Past Medical History Medical History Acute appendicitis Asthma Environmental allergies Obesity Reactive airway disease Recurrent herpes labialis Surgical History Surgical History H/O: hysterectomy (~09/2017) History of History of laparoscopic appendectomy 07/12/20 Family History Family History Father Cerebrovascular accident Prostate carcinoma Sibling History of blood clots Sibling Prostate carcinoma Other Diabetes mellitus Hypertension Social History Social History Alcohol intake: never Substance use: never Substance use type: does not use Living arrangements: with family Gender identity (if verbalized by the patient): Female Sexual Orientation (if Verbalized by the Patient): Straight or Heterosexual Spiritual care concerns: No Anes - Eval Final PreProcedure Day of Procedure 04/12/22 08:30 Patient weight: obese Heart: regular rate and rhythm Lungs: clear to auscultation Airway: Mallampati scale class II Neurological: alert and oriented Last oral intake: >/= 8 hours ASA classification: II Emergent: no Anesthetic plan: proceed Anesthesia type and monitoring: general GIVS and standard monitoring Results Review: All pre-operative results and documents have been reviewed as part of the pre- operative evaluation. Informed Consent: The patient's anesthetic plan and its attendant risks and benefits were discussed with the patient/family/POA. Questions were solicited and answers provided to the satisfaction of the patient/family/POA.
--- NOTE | 2022-04-12 08:34 | PM.HPGS ---
History of Present Illness History of Present Illness Consent: Risks, benefits, and alternatives have been discussed and questions answered. Patient agrees to proceed with procedure. Chief complaint: neoplasm screening Narrative: Heidi Gross is a 51 year old female here for screening colonoscopy Review of Systems Constitutional: Constitutional: Denies headache(s) and Denies weakness Eyes: Eyes: Denies blurry vision ENT: Reports Normal hearing present, Denies headache(s) and Denies neck pain Cardiovascular: Cardiovascular: Denies chest pain and Denies dyspnea Respiratory: Respiratory: Denies dyspnea Gastrointestinal: Gastrointestinal: Reports no additional gastrointestinal complaints Genitourinary: Genitourinary: Denies dysuria Musculoskeletal: Musculoskeletal: Denies neck pain Integumentary/Breasts: Skin/Breast: Denies dry skin Neurologic: Reports Normal hearing present, Denies headache(s) and Denies weakness Psychiatric: Psychiatric: Denies anxiety Endocrine: Endocrine: Denies change in body appearance Hematologic/Lymphatic: Hematologic/Lymphatic: Denies easy bleeding Allergic/Immunologic: Allergic/Immunologic: Denies urticaria PMF Past Medical History Medical History (Updated 04/12/22 @ 08:35 by Nelson Betancourt MD) Acute appendicitis Asthma Colon cancer screening Environmental allergies Obesity Reactive airway disease Recurrent herpes labialis Surgical History Surgical History H/O: hysterectomy (~09/2017) History of History of laparoscopic appendectomy 07/12/20 Family History Family History Father Cerebrovascular accident Prostate carcinoma Sibling History of blood clots Sibling Prostate carcinoma Other Diabetes mellitus Hypertension Social History Social History Alcohol intake: never Substance use: never Substance use type: does not use Living arrangements: with family Gender identity (if verbalized by the patient): Female Sexual Orientation (if Verbalized by the Patient): Straight or Heterosexual Spiritual care concerns: No Meds Home Medications and Allergies Home Medications Medication Instructions Recorded Confirmed Type albuterol sulfate 90 mcg/actuation 2 puff inhalation Q4H PRN 06/30/20 03/24/22 History aerosol inhaler Shortness Of Breath Or Wheezing valacyclovir 1 gram tablet 2,000 mg PO Q12H PRN cold sores 09/08/20 03/24/22 Rx #30 tabs [id number]-qfrdnwcfz-rnnekiag 3.5 1 drp EACH EYE Q4H #5 mL 09/14/21 03/24/22 Rx mg/mL-10,000 unit/mL-0.1% eye drops Allergies Allergy/AdvReac Type Severity Reaction Status Date / Time No Known Allergies Allergy Verified 03/24/22 13:10 Exam Const: General: comfortable and no acute distress HENMT: Face/Nose/Sinus: Normal nares present Eyes: General: appearance normal, both eyes and all related structures Neck: Neck: no JVD Resp: Auscultation: clear to auscultation bilaterally Cardio: Rate: regular rate Rhythm: regular rhythm GI: Inspection: non-distended GI Palp: Yes Soft to palpation Skin: General skin exam: normal color Neuro: General: gait normal Speech: normal speech Extrem: General: normal to inspection Psych: Mental Status: mental status grossly normal Assessment and Plan Assessment and plan (1) Colon cancer screening: Code(s): Z12.11 - Encounter for screening for malignant neoplasm of colon Status: Acute Assessment and Plan: colonoscopy
[2022-04-12 08:55] VITALS: BP 111/69; PULSE 72; RESP 22; O2SAT 98
[2022-04-12 09:05] VITALS: BP 125/88; PULSE 62; RESP 20; O2SAT 99
[2022-04-12 09:15] VITALS: BP 137/90; PULSE 77; RESP 20; O2SAT 100
== END 2022-04-12 09:23 | disposition home or self-care (01) ==
PROVIDERS: PCP Family Medicine; Visit Provider Internal Medicine Gastroenterology
PROC: 0DJD8ZZ Inspection of Lower Intestinal Tract, Via Natural or Artificial Opening Endoscopic (ICD-10-PCS; CPT 45378; principal; 2022-04-12 09:00)
DX: Z12.11 Encounter for screening for malignant neoplasm of colon (principal); K57.30 Diverticulosis of large intestine without perforation or abscess without bleeding; K64.8 Other hemorrhoids; J45.909 Unspecified asthma, uncomplicated; Z79.51 Long term (current) use of inhaled steroids; E66.9 Obesity, unspecified; Z68.36 Body mass index [BMI] 36.0-36.9, adult
CPT/HCPCS: 45378; J2704; J7120

== ENCOUNTER 2022-07-18 17:23 | Outpatient (CLI) | payer OTHER, SELFPAY ==
--- NOTE | ~2022-07-18 | MM_ITS ---
EXAMINATION: MM screening [facility] BI w evelyn HISTORY: Screening mammogram TECHNIQUE: Craniocaudal and mediolateral oblique 3-D tomosynthesis images were obtained and synthetic 2-D images were generated. CAD analysis was submitted and interpreted. COMPARISON: 12/06/2011 bilateral screening mammogram BREAST PARENCHYMAL COMPOSITION: The breasts are almost entirely fatty. FINDINGS: There is no evidence of suspicious mass, calcification, or architectural distortion to sugg est malignancy in either breast. There has been no suspicious interval change. IMPRESSION: 1. No mammographic evidence of malignancy. 2. Recommend routine screening mammography in one year. BI-RADS Category 1: Negative Reviewed, dictated and finalized at location A. IPITATOR
== END 2022-07-18 17:24 | disposition home or self-care (01) ==
LOC: ANHIMG 17:27
PROVIDERS: Visit Provider Obstetrics & Gynecology
DX: Z12.31 Encounter for screening mammogram for malignant neoplasm of breast (principal)
CPT/HCPCS: 77063; 77067

== ENCOUNTER 2022-12-13 11:38 | Outpatient (CLI) | payer OTHER, SELFPAY ==
[2022-12-13 12:26] LABS: Basophils Absolute Auto 0.1 K/mm3 (0.0-0.1); Basophils Percent Auto 0.7 % (0.2-1.2); Eosinophils Absolute Auto 0.4 K/mm3 (0-0.3); Eosinophils Percent Auto 5.8 % (0-4.4); Hematocrit 40.8 % (37.0-47.0); Immature Granulocyte Absolute 0.02 K/mm3 (0.00-0.031); Immature Granulocyte Percent A 0.3 % (0-0.5); Lymphocytes Percent Auto 36.3 % (18.3-44.2); Mean Corpuscular HGB Conc 34.3 g/dl (32-36); Mean Corpuscular Hemoglobin 30.1 pg (26-34); Mean Corpuscular Volume 87.7 fl (80-100); Mean Platelet Volume 9.8 fl (7.4-10.4); Monocytes Absolute Auto 0.4 K/mm3 (0.1-0.6); Monocytes Percent Auto 5.1 % (2.6-8.5); Neutrophils Absolute Auto 3.9 K/mm3 (1.3-6.7); Neutrophils Percent Auto 51.8 % (45.5-73.1); Platelet Count Result 277 k/mm3 (150-375); Red Blood Count 4.65 M/mm3 (4.2-5.4); Red Cell Distribution Width 12.3 % (11.5-14.5); White Blood Count 7.4 K/mm3 (4.5-10.0)
[2022-12-13 12:48] LABS: Appearance Urine Clear (Clear); Bilirubin Urine Negative (Negative); Blood Urine Negative (Negative); Color Urine Yellow (Yellow); Glucose Urine UA Negative (Negative); Ketones Urine Negative (Negative); Leukocyte Esterase Ur Negative LEU/UL (NEGATIVE); Nitrate Urine Negative (Negative); Protein Urine Negative (Negative); Specific Grav Ur 1.016 (1.001-1.035); Urobilinogen Urine 0.2 mg/dL (<2.0); pH Urine 6.5 (5.0-9.0)
[2022-12-13 13:00] LABS: Add Urine Microscopic? NO
[2022-12-13 13:59] LABS: Alanine Aminotransferase 19 U/L (6-35); Albumin Level 4.5 g/dL (3.5-5.1); Alkaline Phosphatase 70 U/L (38-126); Anion Gap 4 mmol/L (8-16); Aspartate Amino Transferase 22 U/L (14-36); Bilirubin,Total 0.5 mg/dL (0.2-1.3); Blood Urea Nitrogen 13 mg/dL (7-17); Calcium 9.1 mg/dL (8.4-10.2); Carbon Dioxide 33 mmol/L (22-30); Chloride 101 mmol/L (98-107); Cholesterol 181 mg/dL (0-200); Estimated Glomerular Filt Rate > 60; Glucose 96 mg/dL (65-110); HDL Direct 43 mg/dL; Potassium 3.9 mmol/L (3.4-5.0); Sodium 138 mmol/L (137-145); Triglycerides 120 mg/dL (<150)
[2022-12-13 14:08] LABS: Hemoglobin A1C 4.9 % (<5.7)
[2022-12-13 14:10] LABS: LDL Cholesterol Direct 117 mg/dL
== END 2022-12-13 11:39 | disposition home or self-care (01) ==
LOC: ANHLAB 11:39
PROVIDERS: PCP Nurse Practitioner Family; Visit Provider Nurse Practitioner Family
DX: Z13.0 Encounter for screening for diseases of the blood and blood-forming organs and certain disorders involving the immune mechanism (principal); Z13.6 Encounter for screening for cardiovascular disorders; Z13.1 Encounter for screening for diabetes mellitus; Z68.36 Body mass index [BMI] 36.0-36.9, adult; Z13.29 Encounter for screening for other suspected endocrine disorder
CPT/HCPCS: 36415; 80053; 80061; 81003; 83036; 84443; 85025

== ENCOUNTER 2024-09-02 15:46 | Outpatient (CLI) | payer OTHER, SELFPAY ==
--- NOTE | ~2024-09-02 | MM_ITS ---
EXAMINATION: MM screening [facility] BI w evelyn HISTORY: Screening mammogram TECHNIQUE: Craniocaudal and mediolateral oblique 3-D tomosynthesis images were obtained and synthetic 2-D images were generated. CAD analysis was submitted and interpreted. COMPARISON: 07/18/2022, 12/06/2011 BREAST PARENCHYMAL COMPOSITION:Not Dense. There are scattered areas of fibroglandular density. FINDINGS: No suspicious mass, calcification, or architectural distortion are identified in either stephen ast to suggest malignancy. There has been no suspicious interval change. IMPRESSION: No mammographic evidence of malignancy. Recommend routine screening mammography in one year. BI-RADS Category 1: Negative Reviewed, dictated and finalized at location . ULATOR
== END 2024-09-02 15:47 | disposition home or self-care (01) ==
LOC: ANHIMG 15:47
PROVIDERS: PCP Nurse Practitioner Family; Visit Provider Obstetrics & Gynecology
DX: Z12.31 Encounter for screening mammogram for malignant neoplasm of breast (principal)
CPT/HCPCS: 77063; 77067